=== PATIENT | female | born 1930 | race Caucasian/White ===

== ENCOUNTER → 2017-05-21 | Outpatient (CLI) | payer MEDICARE, BC ==
--- NOTE | 2017-05-21 14:32 | CT ---
EXAMINATION TYPE: CT cervical spine wo con DATE OF EXAM: 05/21/2017 COMPARISON: NONE HISTORY: neck pain, no known injury, c/o bilateral hand cramping CT DLP: 393.7 mGycm. Automated Exposure Control for Dose Reduction was Utilized. TECHNIQUE: CT scan of the cervical spine is obtained without contrast, axial images are obtained, sa gittal and coronal reformatted images are also reviewed. FINDINGS: Cervical spine is visualized in its entirety from C1 through upper thoracic levels, demonst rates scoliotic curvature without evidence of acute fracture or dislocation. There is grade 1 jenn listhesis of C4 on C5 and C5 on C6. Prevertebral soft tissue appears within normal limits. The C1-C2 articulation is within normal limits on the coronal images. Osseous structures are demineralized. Vertebral body heights are maintained. There is mild disc space narrowing C4-C5 level. There is moderate disc space narrowing C5-C6 level. There is moderate to adva nced disc space narrowing and spurring C6-C7 level. Posterior spur disc complex effaces anterior thec al sac at this level on sagittal and axial images. Review of axial images shows bilateral uncovertebral facet degenerative changes C4-C5 and C5-C6 level s. Marginal spurring contributes to bilateral neural foraminal narrowing C6-C7 level. There is mild t o moderate emphysematous change in visualized lung apices. There is mild to moderate calcified plaque in bilateral carotid bulbs. There is focal calcified pleural thickening or possible calcified dural based meningioma effacing posterior lateral spinal canal on axial image 24 measuring 8 x 3 mm. IMPRESSION: There is multilevel spondylolisthesis, demineralization, and multilevel degenerative mendez ges as detailed above. 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 This can BE correlated with contrast-enhanced cervical spine MRI if desired.
== END | disposition home or self-care (01) ==
LOC: RADCTMAIN 13:29
PROVIDERS: ATTEND Psychiatry & Neurology Neurology
DX: M47.812 Spondylosis without myelopathy or radiculopathy, cervical region (principal); M43.12 Spondylolisthesis, cervical region
CPT/HCPCS: 72125

== ENCOUNTER → 2017-06-24 | Outpatient (CLI) | payer MEDICARE, BC | LOC: RADCTMAIN 12:57 | PROVIDERS: ATTEND Psychiatry & Neurology Neurology | DX: Z53.9 Procedure and treatment not carried out, unspecified reason (principal) | CPT/HCPCS: 82565; 84520 ==

== ENCOUNTER 2017-12-04 09:43 | Observation (INO) | payer MEDICARE, BC ==
[2017-12-04] MEDS ORDERED: METOCLOPRAMIDE 5 MG/ML 2 ML VIAL IVP PRN (11:07)
[2017-12-04] MEDS ORDERED: ONDANSETRON 4 MG/2 ML VIAL IVP PRN (11:07)
[2017-12-04] MEDS ORDERED: diphenhydrAMINE 25 MG CAP PO PRN (11:07)
[2017-12-04] MEDS ORDERED: HYDROcodone/APAP 5-325MG 1 EACH TAB PO PRN ×3 (11:07→20:59)
[2017-12-04] MEDS ORDERED: SENNOSIDES-DOCUSATE SODIUM 1 EACH TAB PO PRN (11:07)
[2017-12-04] MEDS ORDERED: TEMAZEPAM 15 MG CAP PO PRN (11:07)
[2017-12-04] MEDS: LATANOPROST 0.005% OPHTH DROPS 2.5 ML BTL RIGHT EYE SCH (22:02)
[2017-12-04] MEDS: ATORVASTATIN 10 MG TAB PO SCH (22:03)
[2017-12-04] MEDS: MECLIZINE 25 MG TAB PO SCH (22:03)
[2017-12-04] MEDS: VIT A,C & E-LUTEIN-MINERALS 1 EACH TAB PO SCH (22:03)
[2017-12-05] MEDS: MECLIZINE 25 MG TAB PO SCH ×3 (07:42→20:50)
[2017-12-05] MEDS: VIT A,C & E-LUTEIN-MINERALS 1 EACH TAB PO SCH ×2 (07:42→15:29)
[2017-12-05] MEDS: MAGNESIUM OXIDE 400 MG TAB PO SCH (07:42)
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
[2017-12-05] MEDS: LATANOPROST 0.005% OPHTH DROPS 2.5 ML BTL RIGHT EYE SCH (20:50)
[2017-12-05] MEDS: ATORVASTATIN 10 MG TAB PO SCH (20:50)
[2017-12-06 00:16] VITALS: RESP 16
[2017-12-06] MEDS: MAGNESIUM OXIDE 400 MG TAB PO SCH (07:50)
[2017-12-06] MEDS: VIT A,C & E-LUTEIN-MINERALS 1 EACH TAB PO SCH (07:50)
[2017-12-06] MEDS: MECLIZINE 25 MG TAB PO SCH (07:50)
[2017-12-06 08:02] VITALS: BP 170/68; PULSE 79; TEMP 98.3
--- NOTE | 2017-12-06 11:34 | P.DS ---
Providers Date of admission: 12/04/17 14:46 Expected date of discharge: 12/06/17 Attending physician: Bipin Moore Consults: 12/04/17 20:51 Consult Physician Routine Consulting Provider: Blake Epperson Consult Reason/Comments: MEDICAL CONSULTATION Do you want consulting provider notified?: Already Contacted Primary care physician: Stated None - Discharge Diagnosis(es) (1) Right humeral fracture Patient was admitted on 12/04/2017 as a result of a displaced right humerus fracture and multiple falls. She requires pain management, PT, OT, moniroring and rehab. Her hospital course has remained without complication. On day of discharge she is afebrile, vital signs stable, labs within acceptable ranges, tolerating by mouth meds and diet, voiding without difficulty, positive flatus, denies abdominal pain or calf pain, pain is controlled on oral pain medication and has no new complaints. Neurovascular status is intact, calves are soft and nontender, abdomen soft and nontender. Review of systems is negative for numbness, tingling, fever, chills, chest pain, shortness breath, nausea, vomiting, dizziness, headaches, slurred speech or other. Current Visit: Yes Status: Acute Priority: Medium Patient Condition at Discharge: Fair Plan - Discharge Summary Discharge Rx Participant: No New Discharge Prescriptions: No Action Atorvastatin [Lipitor] 10 mg PO HS Travoprost [Travatan Z 0.004%] 1 drop RIGHT EYE HS Meclizine [Antivert] 25 mg PO TID Vit C/E/Zn/Coppr/Lutein/Zeaxan [Preservision Areds 2 Softgel] 1 cap PO BID Magnesium Chloride [Slow Mag] 64 mg PO DAILY HYDROcodone/APAP 5-325MG [[place] 5-325] 1 tab PO Q8H PRN PRN Reason: Pain rOPINIRole HCL [Requip] 0.5 mg PO HS Discharge Medication List Atorvastatin [Lipitor] 10 mg PO HS 11/14/15 [History] Travoprost [Travatan Z 0.004%] 1 drop RIGHT EYE HS 11/14/15 [History] HYDROcodone/APAP 5-325MG [[place] 5-325] 1 tab PO Q8H PRN 12/04/17 [History] Magnesium Chloride [Slow Mag] 64 mg PO DAILY 12/04/17 [History] Meclizine [Antivert] 25 mg PO TID 12/04/17 [History] Vit C/E/Zn/Coppr/Lutein/Zeaxan [Preservision Areds 2 Softgel] 1 cap PO BID 12/04 [History] rOPINIRole HCL [Requip] 0.5 mg PO HS 12/04/17 [History] Follow up Appointment(s)/Referral(s): Bipin Moore MD [Medical Doctor] - 12/20/17 9:00 am Activity/Diet/Wound Care/Special Instructions: take meds as directed f/u with Dr. Moore in office nonweightbearing RUE Discharge Disposition: TRANSFER TO SNF/ECF
== END 2017-12-06 15:05 ==
LOC: INTOOBSV 14:46 → 5MS5E 14:46
PROVIDERS: ADMIT Orthopaedic Surgery; ATTEND Orthopaedic Surgery
DX: S42.301D Unspecified fracture of shaft of humerus, right arm, subsequent encounter for fracture with routine healing (principal); R29.6 Repeated falls; E78.5 Hyperlipidemia, unspecified; Z87.440 Personal history of urinary (tract) infections; Z87.11 Personal history of peptic ulcer disease; N18.3 Chronic kidney disease, stage 3 (moderate); H40.9 Unspecified glaucoma; H35.30 Unspecified macular degeneration; M54.5 Low back pain; M75.02 Adhesive capsulitis of left shoulder; G89.29 Other chronic pain; D64.9 Anemia, unspecified; R42 Dizziness and giddiness; W19.XXXD Unspecified fall, subsequent encounter; Z90.49 Acquired absence of other specified parts of digestive tract; Z97.0 Presence of artificial eye; Z87.828 Personal history of other (healed) physical injury and trauma; Z87.891 Personal history of nicotine dependence; Z96.612 Presence of left artificial shoulder joint; Z79.899 Other long term (current) drug therapy; Z80.8 Family history of malignant neoplasm of other organs or systems; Z80.1 Family history of malignant neoplasm of trachea, bronchus and lung; Z82.5 Family history of asthma and other chronic lower respiratory diseases
CPT/HCPCS: 97116; 97162; 97530; 97535; 97166; G0378 ×4; G0379

== ENCOUNTER → 2018-01-24 | Outpatient (CLI) | payer MEDICARE, BC ==
--- NOTE | 2018-01-24 16:02 | XR ---
EXAMINATION TYPE: XR chest 2V DATE OF EXAM: 01/24/2018 COMPARISON: NONE TECHNIQUE: PA and lateral views submitted. HISTORY: Abnormal x-ray FINDINGS: The lungs are clear and there is no pneumothorax, pleural effusion, or focal pneumonia. Interstitiu m somewhat coarsened and postsurgical change involving the left shoulder. Postsurgical change involvi ng vertebral, and is atherosclerotic change aorta. Hyperinflation suggests COPD there is degenerative change of the spine. IMPRESSION: 1. No acute process.
== END | disposition home or self-care (01) ==
LOC: RADXRMAIN 15:13
PROVIDERS: ATTEND Family Medicine
DX: R91.8 Other nonspecific abnormal finding of lung field (principal)
CPT/HCPCS: 71046

== ENCOUNTER 2018-01-31 12:21 | Inpatient (IN) | payer MEDICARE, BC ==
[2018-01-29 10:55] VITALS: BMI 27.3
[~2018-01-31 12:21] MED LIST: MIDAZOLAM 2 MG/2 ML VIAL IV PRN; ONDANSETRON 4 MG/2 ML VIAL IVP ONE; ceFAZolin IN SWFI 2 GM/20 ML SYRINGE IVP ONE; fentaNYL (PF) 50 MCG/ML 2 ML AMP IV PRN
[2018-01-31] MEDS: LACTATED RINGERS 1,000 ML IV SCH ×2 (14:47→22:02)
[2018-01-31] MEDS ORDERED: LIDOCAINE 1% 20 ML VIAL (10MG/ML) FOR IV START INTRADERMA ONE (14:47)
[2018-01-31 15:56] LABS: Basophils % (A) 1 %; Eosinophils # (A) 0.4 k/uL (0-0.7); Eosinophils % (A) 7 %; HCT 34.8 % (34.0-46.0); HGB 11.2 gm/dL (11.4-16.0); Lymphocytes % (A) 32 %; MCH 32.8 pg (25.0-35.0); MCHC 32.2 g/dL (31.0-37.0); MCV 101.9 fL (80.0-100.0); Macrocytosis Slight; Mean Platelet Volume 8.4; Monocytes # (A) 0.4 k/uL (0-1.0); Monocytes % (A) 7 %; Neutrophils # (A) 3.2 k/uL (1.3-7.7); Neutrophils % (A) 52 %; Platelet Count 144 k/uL (150-450); RBC 3.42 m/uL (3.80-5.40); RDW 15.2 % (11.5-15.5); WBC 6.1 k/uL (3.8-10.6)
[2018-01-31 16:07] LABS: Calcium 9.3 mg/dL (8.4-10.2); Potassium 4.5 mmol/L (3.5-5.1)
[2018-01-31] MEDS ORDERED: ROCURONIUM BROMIDE 10 MG/ML 10 ML VIAL IV ONE (17:50)
[2018-01-31] MEDS ORDERED: HYDROmorphone (PF) 1 MG/ML ONE (17:50)
[2018-01-31] MEDS ORDERED: fentaNYL (PF) 50 MCG/ML 2 ML AMP ONE (17:50)
[2018-01-31] MEDS ORDERED: ePHEDrine SULFATE/0.9% NACL/PF 50 MG/5 ML SYRINGE IV ONE (17:50)
[2018-01-31] MEDS ORDERED: MIDAZOLAM 2 MG/2 ML VIAL ONE (17:50)
[2018-01-31] MEDS ORDERED: SUCCINYLCHOLINE CHLORIDE 100 MG/5 ML SYR IV ONE (17:50)
[2018-01-31] MEDS ORDERED: LIDOCAINE 1% INJ 10MG/ML (20 ML MDV) ONE (17:50)
[2018-01-31] MEDS ORDERED: PROPOFOL 10 MG/ML 20 ML VIAL IV ONE (17:50)
[2018-01-31] MEDS ORDERED: KETAMINE 10 MG/ML 20 ML VIAL ONE (17:50)
[2018-01-31] MEDS ORDERED: LACTATED RINGERS 1,000 ML IV ONE (20:11)
--- NOTE | 2018-01-31 20:35 | P.OP ---
Date of Procedure: 01/31/18 Preoperative Diagnosis: 1. 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 Osteoporosis 3. Noncompliance Postoperative Diagnosis: Same Procedure(s) Performed: Open reduction and internal fixation of right humerus fracture Anesthesia: NAVIN Surgeon: Bipin Moore [employer] #1: Hanny Celeste Pathology: none sent Condition: stable Disposition: PACU Indications for Procedure: The patient is a very pleasant 87-year-old female with a medical history significant for osteoporosis. The patient sustained a right humeral shaft fracture and was initially seen by an outside physician. The patient and her family followed up in my office. We initially attempted to treat the patient conservatively with a coaptation splint followed by a fracture brace. Initially the fracture was well aligned within the fracture brace that eventually the patient became noncompliant with her brace and had increasing deformity and pain in her arm. We continued to treat her nonoperatively with serial x-rays. The patient's pain and deformity increased and her x-rays showed significant angulation and distraction at the fracture site. We discussed continued observation due to the patient's age versus surgery. The patient and her family requested surgery. My recommendation was to perform an open reduction and internal fixation through a posterior approach and use a long locking plate. We discussed the potential risks and complications of surgery including but not limited to risk of anesthesia, superficial infection, deep infection, delayed wound healing, fracture nonunion, fracture malunion, loss of fixation of the hardware, hardware failure, re-displacement, and chronic pain, chronic swelling, generalized satisfaction with surgery, DVT, PE, and possibly loss of arm or life area and the patient and her family understand her increased risk of having a complication particularly delayed union, nonunion , hardware failure due to her osteoporosis and noncompliance. They provided their verbal and written consent to go forward with surgery. Description of Procedure: The patient was identified in preoperative holding and the correct right arm was marked with my initials. I reviewed the consent form and her preoperative images. The patient was then brought back to the operating room by anesthesia. She was positioned supine on the OR table and a general anesthetic and preoperative antibiotics were administered. Once the patient was under anesthesia she was positioned in the lateral decubitus position with the left side down and the right side up. An axillary roll was placed. The down left arm was brought to the side of the table and secured with foam and tape. An arm augustin was used under the arm to position the right arm. Foam was placed under the down left leg to protect the bony prominences and common peroneal nerve. A pillow was placed between the legs. Once the patient was adequately positioned in the lateral decubitus position the OR table was positioned 90 from the anesthesia machine to facilitate imaging. The right arm was then prepped and draped in the standard sterile fashion. Prior to starting surgery timeout was performed identifying the correct patient, operative extremity, and procedure. I began by outlining the bony landmarks over the posterior aspect of the arm including the acromion proximally and the tip of the olecranon distally. A straight posterior incision centered over the humeral shaft was marked out with a skin marker. Skin incision was made with a scalpel and dissection was carried down carefully to the subcutaneous tissue with electrocautery taking care to control any bleeding vessels. The fascia over the triceps muscle was incised longitudinally in line with the skin incision. Proximally the interval between the long and lateral head of the triceps was bluntly developed. I carefully dissected down the shaft of the humerus until the radial nerve and deep artery were identified. They were carefully exposed and retracted using small vessel loops. Once the neurovascular bundle had been identified and carefully retracted the humerus was exposed proximally. The fracture site was identified and there was abundant callus. There was gross motion at the fracture site and an obvious nonunion. Distally the medial head of the triceps was bluntly exposed and elevated off the posterior cortex of the humerus. I carefully debrided the early consolidating callus down to the fracture ends. Due to the subacute presentation I was unable to get a cortical read. Using a 2.0 mm drill bit a unicortical hole was placed along the lateral aspect of the humeral shaft proximal and distal to the fracture. Findings of a pointed reduction clamp were placed in these holes and used a generate compression across the fracture site and to reduce the fracture. The same procedure was repeated medially using a 2.0 mm drill bit to create holes and a large point-to- point reduction clamp to generate compression. I then placed a 10 hole 4.5 mm locking plate over the posterior shaft of the femur taking care to slide the plate underneath the neurovascular bundle. Once the plate was in appropriate position nonlocking 4.5 mm screws were placed proximal and distal to the plate hoping to bring the plate down to bone. Proximally the bone quality was very poor and the screw did not adequately bring the plate down to bone so a large plate to bone reduction clamp was used gently bringing the plate down to bone. I then proceeded to fill the locking screws proximally and distally with 4.5 mm locking screws. All of the holes of the plate were filled with locking screws, acknowledging that standard AO technique generally doesn't dictate filling all holes of the plate, but due to her poor bone quality I elected to fill all of the holes. On inspection the fracture site was adequately compressed and the construct appeared stable. Final fluoroscopic images were taken. The neurovascular bundle was identified and seen to be intact. The wound was copiously irrigated with sterile saline. The triceps tendon distally was closed with a running 0 Vicryl. The fascia over the triceps muscle was closed with a running 0 Vicryl. The deep subcutaneous layer was reapproximated using 2 -0 Vicryl. The skin was closed with a running subcuticular stitch and Dermabond. A sterile dressing was applied. Due to the patient's poor bone quality and noncompliance a posterior plaster splint was placed to help facilitate healing of the incision and to protect our surgical repair. I verified that all instrument, sponge, and sharp counts were correct. A sterile dressing was applied followed by the previously mentioned posterior splint. The patient was then awoken from her anesthetic, transferred to a gurney, and brought to PACU having pouted the procedure well. Hanny Celeste PA-C was required is a skilled distribution center assistant for patient positioning, surgical exposure, reduction of the fracture, placement of hardware, closure of wound, and application of splint. Ryan: The patient is going to be admitted for pain control, antibiotics, and assessment for rehab placement. She is to keep her arm in a sling at all times. She is to have a 5 pound weight restriction. She'll follow up in the office in 2 weeks for splint removal and x-rays of the humerus.
[2018-01-31] MEDS ORDERED: HYDROcodone/APAP 5-325MG 1 EACH TAB PO PRN (21:05)
[2018-01-31] MEDS ORDERED: diphenhydrAMINE 25 MG CAP PO PRN (21:05)
[2018-01-31] MEDS ORDERED: HYDROmorphone 0.5 MG/0.5 ML SYRINGE IVP PRN ×3 (21:05)
[2018-01-31] MEDS ORDERED: TEMAZEPAM 15 MG CAP PO PRN (21:05)
[2018-01-31] MEDS ORDERED: ONDANSETRON 4 MG/2 ML VIAL IVP PRN (21:05)
[2018-01-31] MEDS ORDERED: SENNOSIDES-DOCUSATE SODIUM 1 EACH TAB PO PRN (21:05)
[2018-01-31] MEDS: ceFAZolin IN SWFI 2 GM/20 ML SYRINGE IVP SCH (23:33)
[2018-01-31] MEDS: HYDROcodone/APAP 5-325MG 1 EACH TAB PO PRN (23:47)
[2018-02-01] MEDS: HYDROcodone/APAP 5-325MG 1 EACH TAB PO PRN (05:23)
[2018-02-01] MEDS: LACTATED RINGERS 1,000 ML IV SCH ×3 (05:25→14:04)
[2018-02-01 07:19] LABS: Basophils % (A) 0 %; Eosinophils # (A) 0.1 k/uL (0-0.7); Eosinophils % (A) 1 %; HCT 26.4 % (34.0-46.0); Lymphocytes # (A) 1.2 k/uL (1.0-4.8); Lymphocytes % (A) 13 %; MCH 33.3 pg (25.0-35.0); MCHC 32.5 g/dL (31.0-37.0); MCV 102.4 fL (80.0-100.0); Macrocytosis Slight; Mean Platelet Volume 8.6; Monocytes # (A) 0.5 k/uL (0-1.0); Monocytes % (A) 5 %; Neutrophils # (A) 7.3 k/uL (1.3-7.7); Neutrophils % (A) 80 %; Platelet Count 115 k/uL (150-450); RBC 2.58 m/uL (3.80-5.40); RDW 15.8 % (11.5-15.5); WBC 9.1 k/uL (3.8-10.6)
[2018-02-01 07:23] LABS: HGB 8.6 gm/dL (11.4-16.0)
[2018-02-01] MEDS: ceFAZolin IN SWFI 2 GM/20 ML SYRINGE IVP SCH (08:49)
[2018-02-01] MEDS: ENOXAPARIN 30 MG/0.3 ML SYRINGE SQ SCH (10:36)
--- NOTE | 2018-02-01 10:52 | P.PN ---
Subjective Progress Note Date: 02/01/18 Principal diagnosis: Nonunion right humerus fracture. This is an 87-year-old female who is status post open reduction internal fixation of nonunion midshaft humerus fracture right arm. She is stable from an orthopedic standpoint this morning. She was just seen by physical therapy who is recommending possible rehab placement. She does have some instability with ambulation. She has no new complaints or concerns today. Objective - Vital Signs Vital signs: Vital Signs Temp 97.9 F 02/01/18 08:47 Pulse 87 02/01/18 08:47 Resp 14 02/01/18 08:47 BP 111/69 02/01/18 08:47 Pulse Ox 99 02/01/18 08:47 Intake & Output 01/31/18 02/01/18 02/01/18 18:59 06:59 18:59 Intake Total 1000 1100 Output Total 700 Balance 1000 400 Weight 63.503 kg Intake: IV 1000 300 Intake, IV Titration 800 Amount Lactated Ringers 1,000 ml 800 @ 100 mls/hr IV .Q10H [facility] Rx#:[id number] Output: Urine 600 Estimated Blood Loss 100 Other: Voiding Method Indwelling Catheter Indwelling Catheter - Exam This is an 87-year-old female in no acute distress. She is alert and oriented 3. Exam of the upper extremities reveals that her splint is intact. Sling is in place. She has full finger motion. She has some difficulty with thumb extension which is unchanged from preoperative findings. She has normal sensation to the fingers. Capillary refills less than 3 seconds. - Labs CBC & Chem 7: 02/01/18 06:40 01/31/18 14:45 Labs: Abnormal Lab Results - Last 24 Hours (Table) 01/31/18 01/31/18 02/01/18 Range/Units 14:45 14:47 06:40 RBC 3.42 L 2.58 L (3.80-5.40) m/uL Hgb 11.2 L 8.6 L D (11.4-16.0) gm/dL Hct 26.4 L (34.0-46.0) % MCV 101.9 H 102.4 H (80.0-100.0) fL RDW 15.8 H (11.5-15.5) % Plt Count 144 L 115 L (150-450) k/uL BUN 38 H (7-17) mg/dL Creatinine 1.23 H (0.52-1.04) mg/dL Glucose 101 H (74-99) mg/dL Assessment and Plan (1) Fracture of right humerus with nonunion Current Visit: Yes Status: Acute Code(s): S42.301K - UNSP FX SHAFT OF HUMERUS, RIGHT ARM, SUBS FOR FX W NONUNION SNOMED Code(s): 01319714 (2) Right humeral fracture Current Visit: No Status: Acute Priority: Medium Code(s): S42.301A - UNSP FRACTURE OF SHAFT OF HUMERUS, RIGHT ARM, INIT SNOMED Code(s): 30983013 (3) Status post open reduction with internal fixation of fracture Current Visit: Yes Status: Acute Code(s): Z96.7 - PRESENCE OF OTHER BONE AND TENDON IMPLANTS; Z87.81 - PERSONAL HISTORY OF (HEALED) TRAUMATIC FRACTURE SNOMED Code(s): 466276598 Plan: The clinical findings are discussed the patient. We will keep her here today and work with physical therapy. PT is recommending a quad cane for more stability with ambulation. We will reassess tomorrow. Patient is considering inpatient rehab.
--- NOTE | 2018-02-02 07:52 | XR ---
EXAMINATION TYPE: XR humerus RT DATE OF EXAM: 01/31/2018 COMPARISON: NONE HISTORY: Intraoperative TECHNIQUE: 2 views submitted. FINDINGS: Images are limited by overlying instrumentation. Postsurgical changes IMPRESSION: 1. Intraoperative image
[2018-02-02] MEDS: ENOXAPARIN 30 MG/0.3 ML SYRINGE SQ SCH (08:21)
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
--- NOTE | 2018-02-02 10:12 | P.PN ---
Subjective Progress Note Date: 02/02/18 Principal diagnosis: Nonunion right humerus fracture. This is an 87-year-old female who is status post open reduction internal fixation of nonunion midshaft humerus fracture right arm. She is stable from an orthopedic standpoint this morning. She was just seen by physical therapy who is recommending possible rehab placement. Hgb was 8.6 yesterday. Repeat labs are pending. Objective - Vital Signs Vital signs: Vital Signs Temp 99.4 F 02/02/18 08:19 Pulse 96 02/02/18 08:19 Resp 16 02/02/18 08:19 BP 106/49 02/02/18 08:19 Pulse Ox 96 02/02/18 08:19 Intake & Output 02/01/18 02/02/18 02/02/18 18:59 06:59 18:59 Intake Total 700 400 Output Total 400 100 Balance 300 300 Intake: Intake, IV Titration 700 Amount Lactated Ringers 1,000 ml 700 @ 100 mls/hr IV .Q10H [facility] Rx#:[id number] Oral 400 Output: Urine 400 100 Uretheral (Null) 200 Other: Voiding Method Indwelling Catheter Bedside Commode - Exam This is an 87-year-old female in no acute distress. She is alert and oriented 3. Exam of the upper extremities reveals that her splint is intact. Sling is in place. She has full finger motion. She has some difficulty with thumb extension which is unchanged from preoperative findings. She has normal sensation to the fingers. Capillary refills less than 3 seconds. - Labs CBC & Chem 7: 02/01/18 06:40 01/31/18 14:45 Assessment and Plan (1) Fracture of right humerus with nonunion Current Visit: Yes Status: Acute Code(s): S42.301K - UNSP FX SHAFT OF HUMERUS, RIGHT ARM, SUBS FOR FX W NONUNION SNOMED Code(s): 87575252 (2) Right humeral fracture Current Visit: No Status: Acute Priority: Medium Code(s): S42.301A - UNSP FRACTURE OF SHAFT OF HUMERUS, RIGHT ARM, INIT SNOMED Code(s): 63485904 (3) Status post open reduction with internal fixation of fracture Current Visit: Yes Status: Acute Code(s): Z96.7 - PRESENCE OF OTHER BONE AND TENDON IMPLANTS; Z87.81 - PERSONAL HISTORY OF (HEALED) TRAUMATIC FRACTURE SNOMED Code(s): 027408807 Plan: The clinical findings are discussed the patient. We will keep her here today and work with physical therapy. PT is recommending a quad cane for more stability with ambulation. Await repeat labs today. Possible discharge to home tomorrow.
[2018-02-02 11:34] LABS: Basophils % (A) 0 %; Eosinophils # (A) 0.1 k/uL (0-0.7); Eosinophils % (A) 2 %; HCT 26.1 % (34.0-46.0); HGB 8.3 gm/dL (11.4-16.0); Lymphocytes # (A) 1.2 k/uL (1.0-4.8); Lymphocytes % (A) 16 %; MCH 33.6 pg (25.0-35.0); MCHC 31.8 g/dL (31.0-37.0); MCV 105.5 fL (80.0-100.0); Macrocytosis Moderate; Mean Platelet Volume 7.3; Monocytes # (A) 0.4 k/uL (0-1.0); Monocytes % (A) 6 %; Neutrophils # (A) 5.4 k/uL (1.3-7.7); Neutrophils % (A) 75 %; Platelet Count 125 k/uL (150-450); RBC 2.47 m/uL (3.80-5.40); RDW 15.7 % (11.5-15.5); WBC 7.3 k/uL (3.8-10.6)
[2018-02-02 11:44] LABS: Calcium 8.7 mg/dL (8.4-10.2); Potassium 5.2 mmol/L (3.5-5.1)
[2018-02-02] MEDS: LACTATED RINGERS 1,000 ML IV SCH ×2 (12:23→13:00)
--- NOTE | 2018-02-02 17:38 | FL ---
Fluoroscopy INDICATION: Pain FINDINGS: Fluoroscopy time: 8 seconds. Images obtained: 3. Images document humeral fracture repair. IMPRESSIONS: 1. Documentation of fluoroscopy.
[2018-02-02] MEDS: HYDROcodone/APAP 5-325MG 1 EACH TAB PO PRN (17:42)
[2018-02-03 07:22] VITALS: BP 140/79; PULSE 82; RESP 18; TEMP 99.4
[2018-02-03 07:32] LABS: Basophils % (A) 1 %; Eosinophils # (A) 0.3 k/uL (0-0.7); Eosinophils % (A) 5 %; HCT 24.8 % (34.0-46.0); HGB 7.8 gm/dL (11.4-16.0); Lymphocytes # (A) 1.5 k/uL (1.0-4.8); Lymphocytes % (A) 26 %; MCH 33.1 pg (25.0-35.0); MCHC 31.5 g/dL (31.0-37.0); MCV 105.2 fL (80.0-100.0); Macrocytosis Moderate; Mean Platelet Volume 7.5; Monocytes # (A) 0.3 k/uL (0-1.0); Monocytes % (A) 5 %; Neutrophils # (A) 3.5 k/uL (1.3-7.7); Neutrophils % (A) 62 %; Platelet Count 111 k/uL (150-450); RBC 2.35 m/uL (3.80-5.40); RDW 15.9 % (11.5-15.5); WBC 5.7 k/uL (3.8-10.6)
[2018-02-03] MEDS: ENOXAPARIN 30 MG/0.3 ML SYRINGE SQ SCH (07:34)
[2018-02-03] MEDS: HYDROcodone/APAP 5-325MG 1 EACH TAB PO PRN ×2 (07:34→13:35)
[2018-02-03 07:44] LABS: Calcium 8.6 mg/dL (8.4-10.2); Potassium 4.9 mmol/L (3.5-5.1)
== END 2018-02-03 14:09 | disposition home or self-care (01) | DRG 494 ==
LOC: OR 12:21 → 3SUR 20:57 → OR 02-01 17:56
PROVIDERS: ADMIT Orthopaedic Surgery; ATTEND Orthopaedic Surgery
PROC: 0PSF04Z Reposition Right Humeral Shaft with Internal Fixation Device, Open Approach (ICD-10-PCS; principal; 2018-01-31 14:15)
DX: S42.301A Unspecified fracture of shaft of humerus, right arm, initial encounter for closed fracture (principal); D53.9 Nutritional anemia, unspecified; D63.1 Anemia in chronic kidney disease; E78.5 Hyperlipidemia, unspecified; H35.30 Unspecified macular degeneration; H40.9 Unspecified glaucoma; M81.0 Age-related osteoporosis without current pathological fracture; N18.9 Chronic kidney disease, unspecified; Z79.899 Other long term (current) drug therapy; Z80.8 Family history of malignant neoplasm of other organs or systems; Z82.5 Family history of asthma and other chronic lower respiratory diseases; Z87.440 Personal history of urinary (tract) infections; Z87.891 Personal history of nicotine dependence; Z90.710 Acquired absence of both cervix and uterus; Z91.19 Patient's noncompliance with other medical treatment and regimen; Z90.01 Acquired absence of eye
CPT/HCPCS: 80048; 82306; 85025

== ENCOUNTER → 2018-02-17 | Outpatient (CLI) | payer MEDICARE, BC ==
[2018-02-17 14:21] LABS: Basophils % (A) 1 %; Eosinophils # (A) 0.3 k/uL (0-0.7); Eosinophils % (A) 5 %; HCT 31.1 % (34.0-46.0); Hypochromasia Moderate; Lymphocytes # (A) 1.6 k/uL (1.0-4.8); Lymphocytes % (A) 31 %; MCH 32.6 pg (25.0-35.0); MCHC 30.8 g/dL (31.0-37.0); MCV 105.7 fL (80.0-100.0); Macrocytosis Moderate; Mean Platelet Volume 7.4; Monocytes # (A) 0.3 k/uL (0-1.0); Monocytes % (A) 5 %; Neutrophils # (A) 2.8 k/uL (1.3-7.7); Neutrophils % (A) 56 %; RBC 2.95 m/uL (3.80-5.40); RDW 15.9 % (11.5-15.5); WBC 5.1 k/uL (3.8-10.6)
[2018-02-17 14:26] LABS: HGB 9.6 gm/dL (11.4-16.0); Platelet Count 189 k/uL (150-450)
[2018-02-17 14:35] LABS: Calcium 9.3 mg/dL (8.4-10.2); Magnesium 2.1 mg/dL (1.6-2.3); Potassium 5.1 mmol/L (3.5-5.1); Uric Acid 6.3 mg/dL (3.7-7.4)
[2018-02-17 18:35] LABS: Iron Saturation 19.01 (12.00-45.00)
[2018-02-17 18:46] LABS: Vitamin D 25 Hydroxy 37.8 ng/mL (30.0-100.0)
[2018-02-17 20:03] LABS: Parathyroid Hormone Intact 62.1 pg/mL (14.0-72.0)
== END | disposition home or self-care (01) ==
LOC: LABWHC1 12:59
PROVIDERS: ATTEND Internal Medicine Nephrology
DX: N18.3 Chronic kidney disease, stage 3 (moderate) (principal); D63.1 Anemia in chronic kidney disease; E55.9 Vitamin D deficiency, unspecified; E21.3 Hyperparathyroidism, unspecified; M10.9 Gout, unspecified; N39.0 Urinary tract infection, site not specified
CPT/HCPCS: 36415; 80048; 82306; 82728; 83540; 83550; 83735; 83970; 84100; 84550; 85025

== ENCOUNTER → 2018-03-03 | Outpatient (CLI) | payer OTHER, MEDICARE, BC ==
[2018-03-03 14:38] LABS: Basophils % (A) 1 %; Eosinophils # (A) 0.2 k/uL (0-0.7); Eosinophils % (A) 5 %; HCT 32.1 % (34.0-46.0); HGB 9.8 gm/dL (11.4-16.0); Hypochromasia Slight; Lymphocytes # (A) 1.3 k/uL (1.0-4.8); Lymphocytes % (A) 30 %; MCH 32.5 pg (25.0-35.0); MCHC 30.7 g/dL (31.0-37.0); MCV 105.9 fL (80.0-100.0); Macrocytosis Moderate; Mean Platelet Volume 8.8; Monocytes # (A) 0.3 k/uL (0-1.0); Monocytes % (A) 6 %; Neutrophils # (A) 2.4 k/uL (1.3-7.7); Neutrophils % (A) 56 %; Platelet Count 115 k/uL (150-450); RBC 3.03 m/uL (3.80-5.40); RDW 15.4 % (11.5-15.5); WBC 4.2 k/uL (3.8-10.6)
[2018-03-03 14:59] LABS: Albumin 3.8 g/dL (3.5-5.0); Calcium 9.1 mg/dL (8.4-10.2); Potassium 5.5 mmol/L (3.5-5.1); Total Bilirubin 0.3 mg/dL (0.2-1.3); Total Protein 6.9 g/dL (6.3-8.2)
== END | disposition home or self-care (01) ==
LOC: LABWHC1 13:53
PROVIDERS: ATTEND Family Medicine
DX: N18.3 Chronic kidney disease, stage 3 (moderate) (principal); D63.1 Anemia in chronic kidney disease
CPT/HCPCS: 36415; 80053; 85025

== ENCOUNTER → 2018-04-29 | Outpatient (CLI) | payer MEDICARE, BC ==
[2018-04-29 15:19] LABS: Basophils % (A) 1 %; Eosinophils # (A) 0.1 k/uL (0-0.7); Eosinophils % (A) 3 %; HCT 35.3 % (34.0-46.0); Hypochromasia Slight; Lymphocytes % (A) 23 %; MCH 32.5 pg (25.0-35.0); MCHC 31.3 g/dL (31.0-37.0); Macrocytosis Slight; Mean Platelet Volume 7.4; Monocytes # (A) 0.3 k/uL (0-1.0); Monocytes % (A) 7 %; Neutrophils # (A) 2.7 k/uL (1.3-7.7); Neutrophils % (A) 63 %; Platelet Count 120 k/uL (150-450); RBC 3.39 m/uL (3.80-5.40); WBC 4.3 k/uL (3.8-10.6)
[2018-04-29 15:30] LABS: Albumin 3.9 g/dL (3.5-5.0); Calcium 9.1 mg/dL (8.4-10.2); Potassium 5.4 mmol/L (3.5-5.1); Total Bilirubin 0.5 mg/dL (0.2-1.3); Total Protein 7.3 g/dL (6.3-8.2)
== END | disposition home or self-care (01) ==
LOC: LABWHC1 14:40
PROVIDERS: ATTEND Family Medicine
DX: N18.3 Chronic kidney disease, stage 3 (moderate) (principal); D63.1 Anemia in chronic kidney disease
CPT/HCPCS: 36415; 80053; 85025

== ENCOUNTER → 2018-06-17 | Outpatient (CLI) | payer MEDICARE, BC ==
--- NOTE | 2018-06-17 13:34 | US ---
EXAMINATION TYPE: US kidneys/renal and bladder DATE OF EXAM: 06/17/2018 COMPARISON: 07/11/2012 CLINICAL HISTORY: N18.3 Chronic kidney disease stage 3. EXAM MEASUREMENTS: Right Kidney: 8.5 x 3.9 x 3.8 cm Left Kidney: 8.2 x 4.0 x 3.4 cm Right Kidney: No hydronephrosis. Measuring small, hypoechoic lesion visualized in the mid pole measur ing 0.6 x 0.6 x 0.6 cm Left Kidney: No hydronephrosis. Measuring small. Hypoechoic lesion visualized lower pole measuring 0. 9 x 0.8 x 0.9 cm Bladder: Not distended, patient did not want to stay to drink water Bilateral Jets seen: No, see above. There is no evidence for hydronephrosis at this point in time. No nephrolithiasis is seen. IMPRESSION: 1. No hydronephrosis or nephrolithiasis. Cortical medullary differentiation is maintained and there i s only mild cortical renal atrophy on the left. 2. Bilateral subcentimeter renal lesions that are suspected to represent small cysts however do not d emonstrate clear increased through transmission and could be further assessed with CT abdomen.
== END | disposition home or self-care (01) ==
LOC: RADUSWWP 11:04
PROVIDERS: ATTEND Internal Medicine Nephrology
DX: N28.9 Disorder of kidney and ureter, unspecified (principal); N26.1 Atrophy of kidney (terminal); N18.3 Chronic kidney disease, stage 3 (moderate)
CPT/HCPCS: 76770

== ENCOUNTER → 2018-08-06 | Outpatient (CLI) | payer MEDICARE, BC ==
[2018-08-06 12:45] LABS: Basophils % (A) 1 %; Eosinophils # (A) 0.2 k/uL (0-0.7); Eosinophils % (A) 5 %; HCT 33.2 % (34.0-46.0); HGB 10.4 gm/dL (11.4-16.0); Hypochromasia Slight; Lymphocytes # (A) 0.9 k/uL (1.0-4.8); Lymphocytes % (A) 28 %; MCH 33.1 pg (25.0-35.0); MCHC 31.3 g/dL (31.0-37.0); MCV 105.8 fL (80.0-100.0); Macrocytosis Moderate; Mean Platelet Volume 7.5; Monocytes # (A) 0.2 k/uL (0-1.0); Monocytes % (A) 6 %; Neutrophils # (A) 1.9 k/uL (1.3-7.7); Neutrophils % (A) 57 %; Platelet Count 148 k/uL (150-450); RBC 3.14 m/uL (3.80-5.40); RDW 14.3 % (11.5-15.5); WBC 3.3 k/uL (3.8-10.6)
[2018-08-06 13:09] LABS: Appearance,Urine Cloudy (Clear); Bacteria,Urine Occasional /hpf; Bilirubin,Urine Negative (Negative); Blood,Urine Negative (Negative); Color,Urine Yellow; Glucose,Urine (UA) Negative (Negative); Ketones,Urine Negative (Negative); Leukocyte Esterase,Urine Large (Negative); Mucus,Urine Rare /hpf; Nitrite,Urine Negative (Negative); PH, Urine 5.5 (5.0-8.0); Protein,Urine Trace (Negative); RBC,Urine 2 /hpf (0-5); Specific Gravity,Urine 1.016 (1.001-1.035); Squamous Epithelial Cell,Urine <1 /hpf (0-4); Urobilinogen,Urine <2.0 mg/dL (<2.0)
[2018-08-06 19:37] LABS: Iron Saturation 25.95 (12.00-45.00)
[2018-08-06 19:39] LABS: Albumin 3.9 g/dL (3.80-4.90); Albumin/Globulin Ratio 1.63 (1.20-2.10); Anion Gap 7.9 mmol/L (4.00-12.00); Carbon Dioxide 24.1 mmol/L (21.6-31.8); Globulin 2.4 g/dL (2.1-3.7); Phosphorus 3.8 mg/dL (2.4-5.1); Potassium 5.2 mmol/L (3.5-5.5); Total Bilirubin 0.6 mg/dL (0.3-1.2); Total Protein 6.3 g/dL (6.2-8.2); Uric Acid 6.5 mg/dL (2.9-7.7)
[2018-08-06 19:45] LABS: Vitamin D 25 Hydroxy 34.2 ng/mL (30.0-100.0)
[2018-08-06 20:51] LABS: Parathyroid Hormone Intact 82.3 pg/mL (14.0-72.0)
== END ==
LOC: LABWHC1 11:33
PROVIDERS: ATTEND Nurse Practitioner Family
DX: Z00.00 Encounter for general adult medical examination without abnormal findings (principal); I87.2 Venous insufficiency (chronic) (peripheral); E78.00 Pure hypercholesterolemia, unspecified; D63.1 Anemia in chronic kidney disease; N18.3 Chronic kidney disease, stage 3 (moderate); R01.1 Cardiac murmur, unspecified; R42 Dizziness and giddiness; E55.9 Vitamin D deficiency, unspecified; N39.0 Urinary tract infection, site not specified; N25.81 Secondary hyperparathyroidism of renal origin; M10.9 Gout, unspecified
CPT/HCPCS: 36415; 80053; 80061; 81001; 82306; 82728; 83540; 83550; 83735; 83970; 84100; 84439; 84443; 84550; 85025; 87086

== ENCOUNTER → 2018-09-05 | Outpatient (CLI) | payer MEDICARE, BC ==
--- NOTE | 2018-09-06 14:37 | ECHOF ---
Referral Reason:R01.1 Cardiac Murmur MEASUREMENTS -------- HEIGHT: 152.4 cm WEIGHT: 63.5 kg BP: IVSd: 1.1 cm (0.6 - 1.1) LVIDd: 3.3 cm (3.9 - 5.3) LVPWd: 0.9 cm (0.6 - 1.1) IVSs: 1.0 cm LVIDs: 2.5 cm LVPWs: 1.4 cm LA Diam: 3.3 cm (2.7 - 3.8) Ao Diam: 3.3 cm (2.0 - 3.7) AV Cusp: 1.3 cm (1.5 - 2.6) LA Diam: 4.1 cm (2.7 - 3.8) MV EXCURSION: 23.254 mm (> 18.000) MV EF SLOPE: 114 mm/s (70 - 150) EPSS: 1.7 cm MV E Joshua: 0.70 m/s MV DecT: 282 ms MV A Joshua: 0.97 m/s MV E/A Ratio: 0.72 AR PHT: 424 ms RAP: 5.00 mmHg RVSP: 29.32 mmHg FINDINGS -------- Sinus rhythm. This was a technically adequate study. LV size, wall thickness and systolic function are normal, with an EF greater than 55%. The left gareth tricular size is normal. The right ventricle is normal in size. The left atrial size is normal. The right atrial size is normal. There is mild aortic valve sclerosis. There is mild aortic regurgitation. Mild mitral annular calcification present. Mild mitral regurgitation is present. Mild tricuspid regurgitation present. There is no evidence of pulmonary hypertension. The right v entricular systolic pressure, as measured by Doppler, is 29.32mmHg. There is no pulmonic regurgitation present. The aortic root size is normal. There is no pericardial effusion. CONCLUSIONS -------- 1. LV size, wall thickness and systolic function are normal, with an EF greater than 55%. 2. The left ventricular size is normal. 3. The right ventricle is normal in size. 4. The left atrial size is normal. 5. The right atrial size is normal. 6. There is mild aortic valve sclerosis. 7. There is mild aortic regurgitation. 8. Mild mitral annular calcification present. 9. Mild mitral regurgitation is present. 10. Mild tricuspid regurgitation present. 11. There is no evidence of pulmonary hypertension. 12. The right ventricular systolic pressure, as measured by Doppler, is 29.32mmHg. 13. There is no pulmonic regurgitation present. 14. The aortic root size is normal. 15. There is no pericardial effusion. [employer]: [employer]
== END ==
LOC: RADECHMAIN 15:09
PROVIDERS: ATTEND Family Medicine
DX: I08.3 Combined rheumatic disorders of mitral, aortic and tricuspid valves (principal)
CPT/HCPCS: 93306

== ENCOUNTER → 2018-09-05 | Outpatient (CLI) | payer MEDICARE, BC ==
--- NOTE | 2018-09-05 16:19 | US ---
EXAMINATION TYPE: US carotid duplex BILAT DATE OF EXAM: 09/05/2018 COMPARISON: NONE CLINICAL HISTORY: R42 DIZZINESS SYNCOPE R55. Vertigo EXAM MEASUREMENTS: RIGHT: Peak Systolic Velocity (PSV) cm/sec ----- Right CCA: 61.6 ----- Right ICA: 186.5 ----- Right ECA: 61.2 ICA/CCA ratio: 3.0 RIGHT: End Diastole cm/sec ----- Right CCA: 11.0 ----- Right ICA: 38.6 ----- Right ECA: 7.3 LEFT: Peak Systolic Velocity (PSV) cm/sec ----- Left CCA: 66.0 ----- Left ICA: 97.6 ----- Left ECA: 48.2 ICA/CCA ratio: 1.5 LEFT: End Diastole cm/sec ----- Left CCA: 12.7 ----- Left ICA: 26.0 ----- Left ECA: 3.3 VERTEBRALS (direction of flow): Right Vertebral: Antegrade Left Vertebral: Antegrade Rhythm: Normal Moderate plaque right bifurcation. Mild plaque left bifurcation. Increased velocities right ICA IMPRESSION: 1. 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 2. No significant flow-limiting stenosis left internal carotid artery. Criteria for Assigning % of Stenosis / Diameter reduction (Estimation based on the indirect measurements of the internal carotid artery velocities (ICA PSV). 1. Normal (no stenosis)=ICA PSV < 125 cm/s: ratio < 2.0: ICA EDV<40 cm/s. 2. Less than 50% stenosis=ICA PSV < 125 cm/s: ratio < 2.0: ICA EDV<40 cm/s. 3. 50 to 69% stenosis=ICA PSV of 125 to 230 cm/s: ration 2.0 ? 4.0: ICA EDV 40-100 cm/s. 4. Greater than 70% stenosis to near occlusion= ICA PSV > 230 cm/s: ratio > 4.0: ICA EDV > 100 cm/s. 5. Near occlusion= ICA PSV velocities may be low or undetectable: variable ratio and ICA EDV. 6. Total occlusion=unable to detect flow.
== END | disposition home or self-care (01) ==
LOC: RADUSMAIN 15:06
PROVIDERS: ATTEND Psychiatry & Neurology Neurology
DX: I65.21 Occlusion and stenosis of right carotid artery (principal)
CPT/HCPCS: 93880

== ENCOUNTER 2018-11-03 08:16 | Day surgery (SDC) | payer MEDICARE, BC ==
[2018-10-29 14:20] VITALS: BMI 27.3
[~2018-11-03 08:16] MED LIST changes: -MIDAZOLAM 2 MG/2 ML VIAL IV PRN; -ONDANSETRON 4 MG/2 ML VIAL IVP ONE; +SODIUM CHLORIDE 0.9% 1,000 ML IV SCH; -ceFAZolin IN SWFI 2 GM/20 ML SYRINGE IVP ONE; -fentaNYL (PF) 50 MCG/ML 2 ML AMP IV PRN
[2018-11-03 08:42] VITALS: PULSE 66; RESP 18; TEMP 97.9
[2018-11-03 11:39] VITALS: BP 155/89
--- NOTE | 2018-11-03 16:10 | P.PCN ---
Preoperative Diagnosis: Diagnosis Recurrent dizzy spells Twelve-lead ECG shows sinus rhythm normal GA narrow QRS normal ST segments normal QT interval Tilt table test for protocol Baseline blood pressure 177/79 mmHg Baseline heart is 69 beats a minute Patient was tilted upright at an angle of 70 per protocol. Her blood pressure remained elevated through the study based upon the arm cuffs However with continuous noninvasive blood pressure monitoring via , Blood pressure was within normal range There was no evidence for neurocardiogenic syncope No evidence for postural tachycardia syndrome or dysautonomia Impression Normal twelve-lead ECG No evidence for neurocardiogenic syncopal Suggest Watch for hypertension Anesthesia: none
== END 2018-11-03 11:33 | disposition home or self-care (01) ==
LOC: CATHEP 08:16
PROVIDERS: ATTEND Internal Medicine Clinical Cardiac Electrophysiology
DX: R42 Dizziness and giddiness (principal)
CPT/HCPCS: 93660

== ENCOUNTER → 2019-03-30 | Outpatient (CLI) | payer MEDICARE, BC ==
[2019-03-30 17:24] LABS: Amorphous Sediment,Urine Occasional /hpf; Appearance,Urine Cloudy (Clear); Bacteria,Urine Moderate /hpf; Bilirubin,Urine Negative (Negative); Blood,Urine Negative (Negative); Color,Urine Yellow; Glucose,Urine (UA) Negative (Negative); Hyaline Casts,Urine 8 /lpf (0-2); Ketones,Urine Negative (Negative); Leukocyte Esterase,Urine Large (Negative); Mucus,Urine Rare /hpf; Nitrite,Urine Positive (Negative); Protein,Urine Trace (Negative); RBC,Urine 1 /hpf (0-5); Specific Gravity,Urine 1.015 (1.001-1.035); Squamous Epithelial Cell,Urine 2 /hpf (0-4); Urobilinogen,Urine <2.0 mg/dL (<2.0); WBC,Urine 37 /hpf (0-5)
[2019-03-30 17:51] LABS: Basophils # (A) 0.1 k/uL (0-0.2); Basophils % (A) 1 %; Eosinophils # (A) 0.2 k/uL (0-0.7); Eosinophils % (A) 3 %; HGB 10.8 gm/dL (11.4-16.0); Hypochromasia Slight; Lymphocytes # (A) 1.7 k/uL (1.0-4.8); Lymphocytes % (A) 33 %; MCH 34.9 pg (25.0-35.0); MCHC 31.8 g/dL (31.0-37.0); MCV 109.6 fL (80.0-100.0); Macrocytosis Marked; Mean Platelet Volume 7.7; Monocytes # (A) 0.3 k/uL (0-1.0); Monocytes % (A) 6 %; Neutrophils # (A) 2.8 k/uL (1.3-7.7); Neutrophils % (A) 55 %; Platelet Count 130 k/uL (150-450); RDW 13.7 % (11.5-15.5); WBC 5.1 k/uL (3.8-10.6)
[2019-03-31 02:15] LABS: African American GFR (CKD) 47.1 (60.0-200.0); Albumin 4.2 g/dL (3.80-4.90); Anion Gap 14.4 mmol/L (4.00-12.00); BUN/Creat Ratio 27.5 Ratio (12.00-20.00); Carbon Dioxide 18.6 mmol/L (21.6-31.8); Magnesium 1.9 mg/dL (1.5-2.4); Non-African American GFR(CKD) 40.6 (60.0-200.0); Phosphorus 3.6 mg/dL (2.4-5.1); Potassium 4.3 mmol/L (3.5-5.5); Uric Acid 6.3 mg/dL (2.9-7.7)
[2019-03-31 02:42] LABS: Ferritin 682.1 ng/mL (10.0-291.0); Iron Saturation 35.45 (12.00-45.00)
[2019-03-31 04:57] LABS: Creatinine,Urine Random 80.6 mg/dL
[2019-03-31 05:00] LABS: Total Protein,Urine Random 36.9 mg/dL (0.0-13.5)
== END | disposition home or self-care (01) ==
LOC: LABWHC1 16:39
PROVIDERS: ATTEND Internal Medicine Nephrology
DX: E55.9 Vitamin D deficiency, unspecified (principal); M10.9 Gout, unspecified; N39.0 Urinary tract infection, site not specified; D64.9 Anemia, unspecified; N25.81 Secondary hyperparathyroidism of renal origin
CPT/HCPCS: 36415; 80048; 81001; 82040; 82570; 82728; 83540; 83550; 83735; 83970; 84100; 84156; 84550; 85025

== ENCOUNTER → 2019-04-28 | Outpatient (CLI) | payer MEDICARE, BC ==
[2019-04-28 13:46] VITALS: BP 134/61; PULSE 77; RESP 18; TEMP 97.5; BMI 28.9
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
== END | disposition home or self-care (01) ==
LOC: WWCWWP 13:28
PROVIDERS: ATTEND Obstetrics & Gynecology
DX: Z53.9 Procedure and treatment not carried out, unspecified reason (principal)

== ENCOUNTER → 2019-05-27 | Outpatient (CLI) | payer MEDICARE, BC ==
[2019-05-27 12:04] VITALS: BP 157/78; PULSE 73; RESP 16; TEMP 97.9; BMI 28.9
--- NOTE | 2019-05-27 13:31 | P.PCN ---
Date of Procedure: 05/27/19 Preoperative Diagnosis: Vulvar/perineal lesion of uncertain behavior Postoperative Diagnosis: Same Procedure(s) Performed: Vulvar/perineal leion biopsy Anesthesia: local Surgeon: Jad Alvarez Estimated Blood Loss (ml): 2 Pathology: other (Vulvar/perineal biopsy) Condition: stable Disposition: same day Indications for Procedure: This was an 88-year-old menopausal female with an LMP of 1968. The patient noticed a sore area at the posterior aspect of the right vulva. The patient is found to have a 1 x 1 cm slightly raised lesion at the border of the posterior right labia majora and perineum. The decision was made to biopsy this lesion. Operative Findings: There is a 1 x 1 cm round slightly raised pinkish lesion which has very regular borders. This is not ulcerated and nontender. The lesion is at the border of the right labia majora and perineum. Description of Procedure: The procedure was explained to the patient. We also discussed possible risks including bleeding and infection. The patient was placed in the lithotomy position and the lesion was prepped with Betadine solution. Lidocaine was used for local anesthesia and 1 mL was injected. Following determination of adequate anesthesia a 3 mm punch biopsy was used to obtain tissue from the central part of the lesion. The base was cut with scissors and the specimen was sent for pathological examination. Silver nitrate sticks were used obtain hemostasis. Antibiotic ointment was applied and a dressing was applied. The patient tolerated the procedure well. Postprocedure blood pressure was 156/82. The patient was instructed to leave the dressing on until tomorrow. After that she'll remove it and keep the area clean and dry. She was instructed to apply an antibiotic ointment such as Neosporin twice a day until healed. She was instructed to call if she has problems such as heavy bleeding, unusual pain or problems. The estimated blood loss was 2ml.
--- NOTE | 2019-05-28 10:50 | P.PN ---
Progress Note - Text Progress Note Date: 05/28/19 Post procedure follow up call Pt states she is doing well. Had minimal bleeding after procedure. Will await pathology results.
--- NOTE | 2019-06-02 09:45 | P.PN ---
Progress Note - Text Progress Note Date: 06/02/19 OUTPATIENT FOLLOW-UP NOTE TEST(S)/RESULTS: Vulvar biopsy done on 05/27/2019 showed MICHAEL II-III. METHOD OF NOTIFICATION: The patient was notified by phone. PATIENT COMMENTS: DIAGNOSIS: MICHAEL II-III (Vulvar dysplasia) DISCUSSION: We have discussed how this lesion is considered precancerous and I have recommended wide local excision. She understands that this can help rule out invasive cancer and may be curative. PLAN: The patient will be referred for wide local excision of the MICHAEL II-III. She will be referred to Dr. Bowman.
== END | disposition home or self-care (01) ==
LOC: WWCWWP 11:39
PROVIDERS: ATTEND Obstetrics & Gynecology
DX: N90.1 Moderate vulvar dysplasia (principal)
CPT/HCPCS: 88305

== ENCOUNTER → 2019-06-29 | Outpatient (CLI) | payer MEDICARE, BC ==
[2019-06-29 15:18] LABS: Basophils % (A) 1 %; Eosinophils # (A) 0.1 k/uL (0-0.7); Eosinophils % (A) 2 %; HCT 37.1 % (34.0-46.0); HGB 11.8 gm/dL (11.4-16.0); Lymphocytes # (A) 1.5 k/uL (1.0-4.8); Lymphocytes % (A) 30 %; MCH 33.7 pg (25.0-35.0); MCHC 31.7 g/dL (31.0-37.0); MCV 106.4 fL (80.0-100.0); Macrocytosis Moderate; Mean Platelet Volume 7.3; Monocytes # (A) 0.3 k/uL (0-1.0); Monocytes % (A) 6 %; Neutrophils # (A) 2.9 k/uL (1.3-7.7); Neutrophils % (A) 59 %; Platelet Count 123 k/uL (150-450); RBC 3.49 m/uL (3.80-5.40); RDW 13.5 % (11.5-15.5); WBC 4.9 k/uL (3.8-10.6)
== END | disposition home or self-care (01) ==
LOC: LABPAT 14:22
PROVIDERS: ATTEND Obstetrics & Gynecology
DX: Z01.818 Encounter for other preprocedural examination (principal); Z01.812 Encounter for preprocedural laboratory examination; I10 Essential (primary) hypertension
CPT/HCPCS: 36415; 85025; 93005

== ENCOUNTER → 2019-07-02 | Outpatient (CLI) | payer MEDICARE, BC ==
[2019-07-02 20:17] LABS: African American GFR (CKD) 42.7 (60.0-200.0); Albumin 4.2 g/dL (3.80-4.90); Albumin/Globulin Ratio 1.62 (1.60-3.17); Anion Gap 10.5 mmol/L (4.00-12.00); BUN/Creat Ratio 19.23 Ratio (12.00-20.00); Carbon Dioxide 22.5 mmol/L (21.6-31.8); Globulin 2.6 g/dL (1.6-3.3); Potassium 4.7 mmol/L (3.5-5.5); Total Bilirubin 0.5 mg/dL (0.2-1.2); Total Protein 6.8 g/dL (6.2-8.2)
== END | disposition home or self-care (01) ==
LOC: LABWHC1 12:02
PROVIDERS: ATTEND Nurse Practitioner Family
DX: Z01.812 Encounter for preprocedural laboratory examination (principal); I12.9 Hypertensive chronic kidney disease with stage 1 through stage 4 chronic kidney disease, or unspecified chronic kidney disease; N18.3 Chronic kidney disease, stage 3 (moderate)
CPT/HCPCS: 36415; 80053

== ENCOUNTER 2019-07-07 06:15 | Day surgery (SDC) | payer MEDICARE, BC ==
[2019-07-03 15:15] VITALS: BMI 27.3
[~2019-07-07 06:15] MED LIST changes: +LACTATED RINGERS 1,000 ML IV SCH; +Pre Op ABX Message 1 EACH MISC MISCELLANE ONE; -SODIUM CHLORIDE 0.9% 1,000 ML IV SCH
[2019-07-07 06:43] VITALS: TEMP 97.3
[2019-07-07] MEDS ORDERED: LIDOCAINE 1% 20 ML VIAL (10MG/ML) FOR IV START INTRADERMA ONE (06:53)
[2019-07-07] MEDS ORDERED: DEXAMETHASONE SOD PHOSPHATE 10 MG/ML 1 ML VIAL IV ONE (07:16)
[2019-07-07] MEDS ORDERED: ONDANSETRON 4 MG/2 ML VIAL IVP ONE (07:16)
[2019-07-07] MEDS ORDERED: MIDAZOLAM 2 MG/2 ML VIAL ONE (07:30)
[2019-07-07] MEDS ORDERED: PROPOFOL 10 MG/ML 20 ML VIAL IV ONE (07:30)
[2019-07-07] MEDS ORDERED: fentaNYL (PF) 50 MCG/ML 2 ML AMP ONE (07:30)
[2019-07-07] MEDS ORDERED: LIDOCAINE 1%-EPI 1:100,000 20 ML VIAL SQ ONE (07:45)
--- NOTE | 2019-07-07 08:06 | P.OP ---
Date of Procedure: 07/07/19 Preoperative Diagnosis: MICHAEL-3 right vulva Postoperative Diagnosis: Pathology pending Procedure(s) Performed: Wide local excision right vulvar lesion Anesthesia: NIKA, local Surgeon: Malaika Bowman Estimated Blood Loss (ml): 10 IV fluids (ml): 500 Urine output (ml): 150 Pathology: other (Right vulvar lesion elliptical excision) Condition: stable Disposition: PACU Description of Procedure: Patient is brought to the operating suite and placed in the dorsal lithotomy position. Light IV sedation is administered per anesthesia. The appropriate timeout is performed to assure proper patient and procedural identification after prepping and draping of the lower body is performed. The right upper thigh has been marked with a marking pen. Antibiotics are not deemed necessary. Sequential stockings are placed. Inspection of the vulvar reveals identification of the previously biopsied area on the right. This region is injected with 1% lidocaine with epinephrine. The bladder is drained for approximately 150 mL of urine. A scalpel is used and a elliptical incision is made to completely excise the area. 2-0 Vicryl is used in an interrupted fashion to bring the edges together. 3-0 repeat dissolvable suture is then used in a subcutaneous manner to bring the edges together. A third layer is placed for excellent reapproximation of the edges. The third layer is in an interrupted fashion. The area is clean and dry, hemostasis is excellent. Neosporin is placed on the wound and a mónica-pad is placed. Estimated blood loss 10 mL's. All sponge needle and enhancement counts are correct. Patient is brought back to recovery room in very good condition with stable vital signs including blood pressure 129/54, pulse 70, 99% O2 saturation. Patient will follow-up with me in the office in 2 weeks. Local wound care is reviewed in detail as the patient is awake and alert upon leaving the OR.
[2019-07-07 08:52] VITALS: RESP 20
[2019-07-07 09:44] VITALS: BP 133/70; PULSE 72
--- NOTE | 2019-07-09 09:07 | CDI ---
Outpatient Documentation Clarification Form Date; 07/09/19 CDS/Office Machinery Or Equipment Installer Name: Karissa Leal Phone: If any questions, call [facility] [employer] Fe[employer] at [phone] Patient Name: Daija Lainez Admit Date: 07/07/19 Discharge Date; 07/07/19 ATTENTIONl: The [facility] Coding Staff appreciate your assistance in clarifying documentation. Please respond to the clarification below the line at the bottom and electronically sign. The [facility] Coding Staff will review the response and follow-up if needed. Please Note: Queries are made part of the Legal Health Record. If you have any questions, please contact the [employer] Feeder. Dear Dr. Bowman, In order to comply with the National Coding Guidelines to code to the closest specificity, please clarify the size of the lesion excised. Thank you for your kind consideration. size of lesion 1cm MTDD
== END 2019-07-07 09:43 | disposition home or self-care (01) ==
LOC: OR 06:15
PROVIDERS: ATTEND Obstetrics & Gynecology
DX: D07.1 Carcinoma in situ of vulva (principal); D64.9 Anemia, unspecified; R01.1 Cardiac murmur, unspecified; I12.9 Hypertensive chronic kidney disease with stage 1 through stage 4 chronic kidney disease, or unspecified chronic kidney disease; N18.9 Chronic kidney disease, unspecified; H35.30 Unspecified macular degeneration; H40.9 Unspecified glaucoma; I08.0 Rheumatic disorders of both mitral and aortic valves; M19.90 Unspecified osteoarthritis, unspecified site; Z87.11 Personal history of peptic ulcer disease; Z90.710 Acquired absence of both cervix and uterus; Z90.01 Acquired absence of eye; Z80.9 Family history of malignant neoplasm, unspecified; Z83.6 Family history of other diseases of the respiratory system; Z97.2 Presence of dental prosthetic device (complete) (partial); Z87.891 Personal history of nicotine dependence; Z79.899 Other long term (current) drug therapy
CPT/HCPCS: 11621; 88305; J2250; J1100; J2405; J3010; J2704

== ENCOUNTER → 2020-02-22 | Outpatient (CLI) | payer MEDICARE, BC ==
[2020-02-22 15:14] LABS: Appearance,Urine Cloudy (Clear); Bacteria,Urine Moderate /hpf; Basophils % (A) 1 %; Bilirubin,Urine Negative (Negative); Blood,Urine Negative (Negative); Color,Urine Yellow; Eosinophils # (A) 0.1 k/uL (0-0.7); Eosinophils % (A) 3 %; Glucose,Urine (UA) Negative (Negative); HCT 33.3 % (34.0-46.0); HGB 10.5 gm/dL (11.4-16.0); Hyaline Casts,Urine 1 /lpf (0-2); Hypochromasia Moderate; Ketones,Urine Negative (Negative); Leukocyte Esterase,Urine Large (Negative); Lymphocytes % (A) 25 %; MCH 35.5 pg (25.0-35.0); MCHC 31.6 g/dL (31.0-37.0); MCV 112.5 fL (80.0-100.0); Macrocytosis Marked; Mean Platelet Volume 9.6; Monocytes # (A) 0.2 k/uL (0-1.0); Monocytes % (A) 6 %; Mucus,Urine Rare /hpf; Neutrophils # (A) 2.5 k/uL (1.3-7.7); Neutrophils % (A) 62 %; Nitrite,Urine Negative (Negative); PH, Urine 5.5 (5.0-8.0); Platelet Count 110 k/uL (150-450); Protein,Urine 1+ (Negative); RBC 2.96 m/uL (3.80-5.40); RBC,Urine 5 /hpf (0-5); RDW 13.8 % (11.5-15.5); Specific Gravity,Urine 1.018 (1.001-1.035); Squamous Epithelial Cell,Urine 1 /hpf (0-4); Urobilinogen,Urine <2.0 mg/dL (<2.0); WBC 4.1 k/uL (3.8-10.6); WBC,Urine 66 /hpf (0-5)
[2020-02-22 15:17] LABS: Protein/Creatinine Ratio,Urine 0.271
[2020-02-22 23:22] LABS: % Iron Saturation 26.43 (12.00-45.00); African American GFR (CKD) 46.7 (60.0-200.0); Anion Gap 5.8 mmol/L (4.00-12.00); BUN/Creat Ratio 29.17 Ratio (12.00-20.00); Calcium 9.2 mg/dL (8.7-10.3); Carbon Dioxide 26.2 mmol/L (21.6-31.8); Magnesium 1.8 mg/dL (1.5-2.4); Non-African American GFR(CKD) 40.3 (60.0-200.0); Phosphorus 3.2 mg/dL (2.4-5.1); Potassium 4.5 mmol/L (3.5-5.5)
[2020-02-22 23:33] LABS: Ferritin 328.6 ng/mL (10.0-291.0)
== END | disposition home or self-care (01) ==
LOC: LABWHC1 14:04
PROVIDERS: ATTEND Nurse Practitioner Family
DX: N18.3 Chronic kidney disease, stage 3 (moderate) (principal); D63.1 Anemia in chronic kidney disease; N39.0 Urinary tract infection, site not specified; R80.9 Proteinuria, unspecified; N25.81 Secondary hyperparathyroidism of renal origin
CPT/HCPCS: 36415; 80048; 81001; 82306; 82570; 82728; 83540; 83550; 83735; 83970; 84100; 84156; 85025

== ENCOUNTER → 2020-08-24 | Outpatient (CLI) | payer MEDICARE, BC ==
[2020-08-24 14:36] LABS: Basophils % (A) 1 %; Eosinophils # (A) 0.1 k/uL (0-0.7); Eosinophils % (A) 3 %; HCT 35.4 % (34.0-46.0); HGB 11.7 gm/dL (11.4-16.0); Hypochromasia Slight; Lymphocytes # (A) 1.3 k/uL (1.0-4.8); Lymphocytes % (A) 26 %; MCH 36.5 pg (25.0-35.0); MCHC 33.2 g/dL (31.0-37.0); Macrocytosis Marked; Mean Platelet Volume 7.9; Monocytes # (A) 0.3 k/uL (0-1.0); Monocytes % (A) 5 %; Neutrophils # (A) 3.1 k/uL (1.3-7.7); Neutrophils % (A) 64 %; Platelet Count 117 k/uL (150-450); RBC 3.22 m/uL (3.80-5.40); RDW 13.6 % (11.5-15.5); WBC 4.9 k/uL (3.8-10.6)
[2020-08-24 15:42] LABS: Appearance,Urine Cloudy (Clear); Bacteria,Urine Few /hpf; Bilirubin,Urine Negative (Negative); Blood,Urine Negative (Negative); Color,Urine Yellow; Glucose,Urine (UA) Negative (Negative); Ketones,Urine Negative (Negative); Leukocyte Esterase,Urine Large (Negative); Mucus,Urine Occasional /hpf; Nitrite,Urine Negative (Negative); PH, Urine 5.5 (5.0-8.0); Protein,Urine Trace (Negative); Specific Gravity,Urine 1.021 (1.001-1.035); Squamous Epithelial Cell,Urine <1 /hpf (0-4); Urobilinogen,Urine <2.0 mg/dL (<2.0); WBC,Urine 22 /hpf (0-5)
[2020-08-25 01:15] LABS: % Iron Saturation 41.09 (12.00-45.00); African American GFR (CKD) 38.8 (60.0-200.0); Albumin 4.2 g/dL (3.80-4.90); Anion Gap 8.2 mmol/L (4.00-12.00); BUN/Creat Ratio 29.29 Ratio (12.00-20.00); Calcium 9.1 mg/dL (8.7-10.3); Carbon Dioxide 23.8 mmol/L (21.6-31.8); Magnesium 1.9 mg/dL (1.5-2.4); Non-African American GFR(CKD) 33.5 (60.0-200.0); Phosphorus 3.6 mg/dL (2.4-5.1); Potassium 4.9 mmol/L (3.5-5.5); Uric Acid 6.3 mg/dL (2.9-7.7)
[2020-08-25 01:18] LABS: Creatinine,Urine Random 140.5 mg/dL
[2020-08-25 01:23] LABS: Ferritin 236.2 ng/mL (10.0-291.0)
[2020-08-25 01:24] LABS: Total Protein,Urine Random 32.4 mg/dL (0.0-13.5)
== END | disposition home or self-care (01) ==
LOC: LABWHC1 13:58
PROVIDERS: ATTEND Internal Medicine Nephrology
DX: N25.81 Secondary hyperparathyroidism of renal origin (principal); R82.81 Pyuria; N18.30 Chronic kidney disease, stage 3 unspecified; M10.9 Gout, unspecified; D63.1 Anemia in chronic kidney disease
CPT/HCPCS: 36415; 80048; 81001; 82040; 82306; 82570; 82728; 83540; 83550; 83735; 83970; 84100; 84156; 84550; 85025; 87086

== ENCOUNTER → 2021-02-10 | Outpatient (CLI) | payer MEDICARE, BC ==
[2021-02-10 14:36] LABS: Appearance,Urine Clear (Clear); Bacteria,Urine Many /hpf; Bilirubin,Urine Negative (Negative); Blood,Urine Negative (Negative); Color,Urine Light Yellow; Glucose,Urine (UA) Negative (Negative); Ketones,Urine Negative (Negative); Leukocyte Esterase,Urine Large (Negative); Mucus,Urine Rare /hpf; Nitrite,Urine Negative (Negative); Protein,Urine Negative (Negative); RBC,Urine <1 /hpf (0-5); Specific Gravity,Urine 1.006 (1.001-1.035); Squamous Epithelial Cell,Urine <1 /hpf (0-4); Urobilinogen,Urine <2.0 mg/dL (<2.0); WBC,Urine 38 /hpf (0-5)
[2021-02-10 14:38] LABS: Creatinine,Urine Random 22.4 mg/dL; Protein/Creatinine Ratio,Urine 0.759
[2021-02-10 19:24] LABS: Basophils # (A) 0.02 X 10*3/uL (0.00-0.10); Basophils % (A) 0.4 %; Eosinophils # (A) 0.15 X 10*3/uL (0.04-0.35); Eosinophils % (A) 2.8 %; HCT 34.9 % (37.2-46.3); HGB 10.7 g/dL (12.0-15.0); Lymphocytes # (A) 1.08 X 10*3/uL (0.90-5.00); Lymphocytes % (A) 19.9 %; MCH 34.9 pg (27.0-32.0); MCHC 30.7 g/dL (32.0-37.0); MCV 113.7 fL (80.0-97.0); Mean Platelet Volume 11.4 fL (9.5-12.2); Monocytes # (A) 0.34 X 10*3/uL (0.20-1.00); Monocytes % (A) 6.3 %; Platelet Count 91 X 10*3/uL (140-440); RBC 3.07 X 10*6/uL (4.10-5.20); RDW 14.5 % (11.5-14.5); WBC 5.42 X 10*3/uL (4.50-10.00)
[2021-02-10 19:25] LABS: Macrocytosis (M) 3+
[2021-02-10 20:05] LABS: % Iron Saturation 26.69 (12.00-45.00); Albumin 4.2 g/dL (3.80-4.90); Anion Gap 9.2 mmol/L (4.00-12.00); Calcium 8.8 mg/dL (8.7-10.3); Carbon Dioxide 19.8 mmol/L (21.6-31.8); Magnesium 2.4 mg/dL (1.5-2.4); Non-African American GFR(CKD) 21.6 (60.0-200.0); Phosphorus 4.5 mg/dL (2.4-5.1); Uric Acid 7.9 mg/dL (2.9-7.7)
[2021-02-10 20:15] LABS: Ferritin 321.6 ng/mL (10.0-291.0)
== END | disposition home or self-care (01) ==
LOC: LABWHC1 13:34
PROVIDERS: ATTEND Internal Medicine Cardiovascular Disease
DX: N39.0 Urinary tract infection, site not specified (principal); N18.30 Chronic kidney disease, stage 3 unspecified; N25.81 Secondary hyperparathyroidism of renal origin; E55.9 Vitamin D deficiency, unspecified; D64.9 Anemia, unspecified; M10.9 Gout, unspecified; R80.9 Proteinuria, unspecified; R00.1 Bradycardia, unspecified
CPT/HCPCS: 36415; 80048; 81001; 82040; 82306; 82570; 82728; 83540; 83550; 83735; 83970; 84100; 84156; 84443; 84550; 85025

== ENCOUNTER → 2021-03-22 | Outpatient (CLI) | payer MEDICARE, BC ==
[2021-03-23 01:12] LABS: African American GFR (CKD) 42.1 (60.0-200.0); Anion Gap 10.6 mmol/L (4.00-12.00); BUN/Creat Ratio 32.31 Ratio (12.00-20.00); Calcium 8.8 mg/dL (8.7-10.3); Carbon Dioxide 22.4 mmol/L (21.6-31.8); Non-African American GFR(CKD) 36.3 (60.0-200.0); Potassium 5.4 mmol/L (3.5-5.5)
== END | disposition home or self-care (01) ==
LOC: LABWHC1 11:58
PROVIDERS: ATTEND Nurse Practitioner Family
DX: N18.30 Chronic kidney disease, stage 3 unspecified (principal)
CPT/HCPCS: 36415; 80048

== ENCOUNTER 2021-05-05 15:26 | Observation (INO) | payer MEDICARE, BC ==
[2021-05-05] MEDS ORDERED: SODIUM CHLORIDE 0.9% 1,000 ML IV STA (16:29)
[2021-05-05] MEDS ORDERED: SODIUM CHLORIDE 0.9% 500 ML 500 ML IV STA (16:29)
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
[2021-05-05 17:01] LABS: Basophils % (A) 1 %; Eosinophils # (A) 0.1 k/uL (0-0.7); Eosinophils % (A) 1 %; HCT 34.3 % (34.0-46.0); HGB 10.9 gm/dL (11.4-16.0); Lymphocytes # (A) 1.7 k/uL (1.0-4.8); Lymphocytes % (A) 29 %; MCH 35.1 pg (25.0-35.0); MCHC 31.8 g/dL (31.0-37.0); MCV 110.3 fL (80.0-100.0); Macrocytosis Marked; Mean Platelet Volume 9.2; Monocytes # (A) 0.4 k/uL (0-1.0); Monocytes % (A) 6 %; Neutrophils # (A) 3.5 k/uL (1.3-7.7); Neutrophils % (A) 60 %; Platelet Count 106 k/uL (150-450); RBC 3.11 m/uL (3.80-5.40); RDW 14.1 % (11.5-15.5); WBC 5.8 k/uL (3.8-10.6)
[2021-05-05 17:03] LABS: Appearance,Urine Cloudy (Clear); Bacteria,Urine Moderate /hpf; Bilirubin,Urine Negative (Negative); Blood,Urine Negative (Negative); Color,Urine Yellow; Glucose,Urine (UA) Negative (Negative); Hyaline Casts,Urine 36 /lpf (0-2); Ketones,Urine Negative (Negative); Leukocyte Esterase,Urine Large (Negative); Mucus,Urine Rare /hpf; Nitrite,Urine Negative (Negative); Protein,Urine Trace (Negative); RBC,Urine 1 /hpf (0-5); Specific Gravity,Urine 1.025 (1.001-1.035); Squamous Epithelial Cell,Urine 2 /hpf (0-4); WBC,Urine 4 /hpf (0-5)
[2021-05-05 17:12] LABS: Albumin 4.1 g/dL (3.5-5.0); Calcium 9.2 mg/dL (8.4-10.2); Magnesium 2.7 mg/dL (1.6-2.3); Potassium 5.8 mmol/L (3.5-5.1); Total Bilirubin 0.4 mg/dL (0.2-1.3); Total Protein 7.2 g/dL (6.3-8.2)
[2021-05-05] MEDS ORDERED: NALOXONE 0.4 MG/ML 1 ML VIAL IV PRN (19:04)
[2021-05-05] MEDS ORDERED: FUROSEMIDE 20 MG TAB PO PRN (19:05)
--- NOTE | 2021-05-05 19:32 | XR ---
EXAMINATION TYPE: XR chest 2V DATE OF EXAM: 05/05/2021 COMPARISON: 01/24/2018 HISTORY: 2 views TECHNIQUE: 2 views FINDINGS: There is no heart failure nor confluent pneumonic infiltrate. Costophrenic angles are clear . There is left shoulder prosthesis. There are chest leads. Thoracic aorta is atheromatous. Bony thor ax is intact. IMPRESSION: No active cardiopulmonary disease. There is clearing of the minimal infiltrate left lung base compared to old exam.
[2021-05-05] MEDS ORDERED: LATANOPROST 0.005% OPHTH DROPS 2.5 ML BTL RIGHT EYE SCH (21:00)
[2021-05-05] MEDS: MECLIZINE 25 MG TAB PO SCH (21:04)
[2021-05-05] MEDS: VIT A,C & E-LUTEIN-MINERALS 1 EACH TAB PO SCH (23:00)
[2021-05-06] MEDS ORDERED: ALPRAZolam 0.25 MG TAB PO STA (03:13)
[2021-05-06] MEDS: MECLIZINE 25 MG TAB PO SCH (08:38)
[2021-05-06 08:41] VITALS: TEMP 97.9
[2021-05-06] MEDS: VIT A,C & E-LUTEIN-MINERALS 1 EACH TAB PO SCH (08:44)
[2021-05-06] MEDS ORDERED: CYANOCOBALAMIN 500 MCG TAB PO SCH (09:00)
[2021-05-06] MEDS ORDERED: NON FORMULARY DRUG (Magnesium Chloride 64 MG Tablet.Er) PO SCH (09:00)
[2021-05-06] MEDS ORDERED: NON FORMULARY DRUG (Krill Oil [Krill Oil] 500 MG Capsule) PO SCH (09:00)
[2021-05-06] MEDS ORDERED: ZINC SULFATE 220 MG CAP PO SCH (09:00)
[2021-05-06] MEDS ORDERED: amLODIPine 5 MG TAB PO SCH (09:00)
[2021-05-06] MEDS ORDERED: SODIUM CHLORIDE 0.9% 1,000 ML IV SCH (09:45)
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
[2021-05-06 12:14] LABS: Basophils % (A) 0 %; Eosinophils # (A) 0.1 k/uL (0-0.7); Eosinophils % (A) 1 %; HCT 32.1 % (34.0-46.0); HGB 10.3 gm/dL (11.4-16.0); Lymphocytes # (A) 1.6 k/uL (1.0-4.8); Lymphocytes % (A) 23 %; MCH 35.4 pg (25.0-35.0); MCV 110.3 fL (80.0-100.0); Macrocytosis Marked; Mean Platelet Volume 9.4; Monocytes # (A) 0.3 k/uL (0-1.0); Monocytes % (A) 5 %; Neutrophils # (A) 4.7 k/uL (1.3-7.7); Neutrophils % (A) 68 %; Platelet Count 109 k/uL (150-450); RBC 2.91 m/uL (3.80-5.40); RDW 14.8 % (11.5-15.5); WBC 6.9 k/uL (3.8-10.6)
[2021-05-06 12:21] LABS: African American GFR (CKD) 28 (>60 ml/min/1.73 sqM); Anion Gap 8 mmol/L; Blood Urea Nitrogen 59 mg/dL (7-17); Carbon Dioxide 19 mmol/L (22-30); Chloride 108 mmol/L (98-107); Glucose 137 mg/dL (74-99); Magnesium 2.5 mg/dL (1.6-2.3); Non-African American GFR(CKD) 24 (>60 ml/min/1.73 sqM); Potassium 5.6 mmol/L (3.5-5.1); Sodium 135 mmol/L (137-145)
[2021-05-06 14:34] VITALS: BP 115/65; PULSE 74; RESP 18
--- NOTE | 2021-05-07 13:12 | P.DS ---
Providers Date of admission: 05/05/21 19:04 Expected date of discharge: 05/06/21 Attending physician: Blake Epperson Consults: 05/05/21 19:04 Consult Physician Routine Consulting Provider: Ashish Gonzalez Consult Reason/Comments: Palpitations, EKG changes Do you want consulting provider notified?: Yes Primary care physician: Blake Epperson - Discharge Diagnosis(es) (1) Hyperkalemia Status: Acute (2) Hypermagnesemia Status: Acute (3) Acute on chronic kidney failure Status: Acute (4) Mixed hyperlipidemia Status: Acute (5) Essential (primary) hypertension Status: Acute (6) Low back pain Status: Acute (7) Acute electrocardiogram changes Status: Acute (8) Dehydration Status: Acute (9) Dizziness Status: Acute Hospital Course: This is an 89-year-old female well-known to me with several chronic medical problems including vertigo, hypertension. She reports a several day history of feeling dizzy lightheaded. She denied any fevers, nausea vomiting, chest pains, receiving shortness of breath. She denies any focal weakness. She came emergency room was found to have a junctional heart rhythm along with hyperkalemia. She also has hypomagnesemia and there are suspicions some deh ydration based on a BUN is 66 and creatinine of 2.0. She received some IV fluids in the emergency room. Currently she denies any chest pains, pressures, shortness breath. Denies any nausea vomiting, she still feels a little lightheaded but is improved. Cardiology consultation is pending. Her telemetry has not been reattached. addendum to 05/06/2021: patient left AMA in the evening after getting inpatient waiting on cardiology. Patient Condition at Discharge: Fair Plan - Discharge Summary Discharge Rx Participant: No New Discharge Prescriptions: Continue Meclizine [Antivert] 25 mg PO BID Vit C/E/Zn/Coppr/Lutein/Zeaxan [Preservision Areds 2 Softgel] 1 cap PO BID Latanoprost/Pf [Latanoprost 0.005% Eye Drop] 1 drop RIGHT EYE HS Discharge Medication List Meclizine [Antivert] 25 mg PO BID 12/04/17 [History] Vit C/E/Zn/Coppr/Lutein/Zeaxan [Preservision Areds 2 Softgel] 1 cap PO BID 12/04/17 [History] Latanoprost/Pf [Latanoprost 0.005% Eye Drop] 1 drop RIGHT EYE HS 10/29/18 [History] Follow up Appointment(s)/Referral(s): Blake Epperson MD [Primary Care Provider] - 1-2 days Discharge Disposition: Left Against Medical Advice
== END 2021-05-06 16:05 | disposition left against medical advice (07) ==
LOC: EC 15:26 → 6NMEDSUR 19:04
PROVIDERS: ADMIT Family Medicine; ATTEND Family Medicine
DX: E87.5 Hyperkalemia (principal); E83.41 Hypermagnesemia; N17.9 Acute kidney failure, unspecified; Z20.822 Contact with and (suspected) exposure to COVID-19; N18.9 Chronic kidney disease, unspecified; I12.9 Hypertensive chronic kidney disease with stage 1 through stage 4 chronic kidney disease, or unspecified chronic kidney disease; E78.2 Mixed hyperlipidemia; E83.42 Hypomagnesemia; M85.80 Other specified disorders of bone density and structure, unspecified site; Z87.891 Personal history of nicotine dependence
CPT/HCPCS: 96360; 96361; 99285; 36415; 93005; 85379; 80053; 80048; 82550; 83690; 83735 ×2; 84484; 85025 ×2; 81001; 87635; 71046; G0378 ×2

== ENCOUNTER 2021-05-14 12:00 | Emergency (ER) | payer MEDICARE, BC ==
[2021-05-14 12:27] VITALS: BP 128/82; PULSE 76; RESP 18; TEMP 98.7
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
--- NOTE | 2021-05-14 13:36 | XR ---
Abdomen, single view. HISTORY: Abdominal pain COMPARISON: 11/23/2015. TECHNIQUE: Single upright AP view the abdomen was obtained. Lung bases are clear and there is no free air beneath the hemidiaphragms. The bowel gas pattern is nonspecific and there is no evidence of obstruction. There are extensive pos tsurgical changes involving the lumbar spine. No suspicious abdominal or pelvic calcifications are se en. IMPRESSION: Nonspecific abdomen without evidence of free air or obstruction.
[2021-05-14 14:28] LABS: Appearance,Urine Cloudy (Clear); Bacteria,Urine Many /hpf; Bilirubin,Urine Negative (Negative); Blood,Urine Negative (Negative); Budding Yeast,Urine Occasional /hpf; Color,Urine Yellow; Glucose,Urine (UA) Negative (Negative); Hyaline Casts,Urine 9 /lpf (0-2); Ketones,Urine Negative (Negative); Leukocyte Esterase,Urine Large (Negative); Mucus,Urine Rare /hpf; Nitrite,Urine Negative (Negative); Protein,Urine 1+ (Negative); RBC,Urine 3 /hpf (0-5); Specific Gravity,Urine 1.017 (1.001-1.035); Squamous Epithelial Cell,Urine 1 /hpf (0-4); Urobilinogen,Urine <2.0 mg/dL (<2.0); WBC,Urine 89 /hpf (0-5)
[2021-05-14] MEDS ORDERED: CEPHALEXIN 500 MG CAP PO STA (15:51)
== END 2021-05-14 16:05 | disposition home or self-care (01) ==
LOC: EC 12:00
DX: N39.0 Urinary tract infection, site not specified (principal); E78.5 Hyperlipidemia, unspecified; M19.90 Unspecified osteoarthritis, unspecified site; N18.9 Chronic kidney disease, unspecified; Z87.891 Personal history of nicotine dependence; Z90.49 Acquired absence of other specified parts of digestive tract; Z90.710 Acquired absence of both cervix and uterus; Z90.722 Acquired absence of ovaries, bilateral
CPT/HCPCS: 74018; 81001; 87086; 99283

== ENCOUNTER → 2021-08-29 | Outpatient (CLI) | payer MEDICARE, BC ==
[2021-08-29 15:44] LABS: Appearance,Urine Cloudy (Clear); Bacteria,Urine Many /hpf; Bilirubin,Urine Negative (Negative); Blood,Urine Negative (Negative); Color,Urine Yellow; Glucose,Urine (UA) Negative (Negative); Hyaline Casts,Urine 3 /lpf (0-2); Ketones,Urine Negative (Negative); Leukocyte Esterase,Urine Moderate (Negative); Mucus,Urine Rare /hpf; Nitrite,Urine Negative (Negative); PH, Urine 5.5 (5.0-8.0); Protein,Urine 1+ (Negative); RBC,Urine 1 /hpf (0-5); Specific Gravity,Urine 1.021 (1.001-1.035); Squamous Epithelial Cell,Urine 1 /hpf (0-4); WBC,Urine 18 /hpf (0-5)
[2021-08-29 22:37] LABS: HCT 34.5 % (37.2-46.3); HGB 10.5 g/dL (12.0-15.0); MCH 35.4 pg (27.0-32.0); MCHC 30.4 g/dL (32.0-37.0); MCV 116.2 fL (80.0-97.0); Mean Platelet Volume 11.5 fL (9.5-12.2); Platelet Count 91 X 10*3/uL (140-440); RBC 2.97 X 10*6/uL (4.10-5.20); RDW 13.4 % (11.5-14.5); WBC 4.95 X 10*3/uL (4.50-10.00)
[2021-08-29 22:38] LABS: Macrocytosis (M) 3+
[2021-08-29 23:34] LABS: African American GFR (CKD) 42.1 (60.0-200.0); Anion Gap 12.1 mmol/L (10.00-18.00); BUN/Creat Ratio 25.31 Ratio (12.00-20.00); Blood Urea Nitrogen 32.9 mg/dL (9.0-27.0); Calcium 9.5 mg/dL (8.7-10.3); Carbon Dioxide 22.5 mmol/L (20.0-27.5); Non-African American GFR(CKD) 36.3 (60.0-200.0); Potassium 4.4 mmol/L (3.5-5.5)
== END | disposition home or self-care (01) ==
LOC: LABWHC1 12:30
PROVIDERS: ATTEND Obstetrics & Gynecology
DX: Z20.822 Contact with and (suspected) exposure to COVID-19 (principal); Z01.812 Encounter for preprocedural laboratory examination
CPT/HCPCS: 80048; 85027; 81001; 87086; 36415; U0003; 87077; 87186

== ENCOUNTER → 2021-09-12 | Outpatient (CLI) | payer MEDICARE, BC ==
[2021-09-12 14:28] LABS: Appearance,Urine Cloudy (Clear); Bacteria,Urine Occasional /hpf; Bilirubin,Urine Negative (Negative); Blood,Urine Trace (Negative); Color,Urine Yellow; Glucose,Urine (UA) Negative (Negative); Hyaline Casts,Urine 9 /lpf (0-2); Ketones,Urine Negative (Negative); Leukocyte Esterase,Urine Large (Negative); Mucus,Urine Occasional /hpf; Nitrite,Urine Negative (Negative); Protein,Urine 1+ (Negative); RBC,Urine 21 /hpf (0-5); Specific Gravity,Urine 1.021 (1.001-1.035); Squamous Epithelial Cell,Urine 4 /hpf (0-4); Urobilinogen,Urine <2.0 mg/dL (<2.0); WBC,Urine 31 /hpf (0-5)
[2021-09-12 14:30] LABS: Creatinine,Urine Random 139.5 mg/dL; Protein/Creatinine Ratio,Urine 0.229
[2021-09-12 18:46] LABS: Albumin 4.2 g/dL (3.8-4.9)
[2021-09-12 18:48] LABS: Basophils # (A) 0.04 X 10*3/uL (0.00-0.10); Basophils % (A) 0.8 %; Eosinophils # (A) 0.04 X 10*3/uL (0.04-0.35); Eosinophils % (A) 0.8 %; HCT 33.1 % (37.2-46.3); HGB 10.1 g/dL (12.0-15.0); Lymphocytes % (A) 21.8 %; MCH 35.3 pg (27.0-32.0); MCHC 30.5 g/dL (32.0-37.0); MCV 115.7 fL (80.0-97.0); Macrocytosis (M) 3+; Mean Platelet Volume 11.2 fL (9.5-12.2); Monocytes # (A) 0.27 X 10*3/uL (0.20-1.00); Monocytes % (A) 5.4 %; Neutrophils # (A) 3.57 X 10*3/uL (1.80-7.70); Neutrophils % (A) 70.8 %; Platelet Count 86 X 10*3/uL (140-440); RBC 2.86 X 10*6/uL (4.10-5.20); RDW 13.5 % (11.5-14.5); WBC 5.04 X 10*3/uL (4.50-10.00)
[2021-09-12 19:34] LABS: % Iron Saturation 34.92 (12.00-45.00); Anion Gap 15.7 mmol/L (10.00-18.00); BUN/Creat Ratio 30.58 Ratio (12.00-20.00); Blood Urea Nitrogen 63.3 mg/dL (9.0-27.0); Calcium 9.1 mg/dL (8.7-10.3); Carbon Dioxide 13.9 mmol/L (20.0-27.5); Magnesium 2.1 mg/dL (1.5-2.4); Non-African American GFR(CKD) 20.7 (60.0-200.0); Phosphorus 4.2 mg/dL (2.4-5.1); Potassium 5.1 mmol/L (3.5-5.5); Uric Acid 7.5 mg/dL (2.9-7.7)
== END | disposition home or self-care (01) ==
LOC: LABWHC1 13:24
PROVIDERS: ATTEND Nurse Practitioner Family
DX: N25.81 Secondary hyperparathyroidism of renal origin (principal); N39.0 Urinary tract infection, site not specified; E55.9 Vitamin D deficiency, unspecified; R80.9 Proteinuria, unspecified; M10.9 Gout, unspecified; D64.9 Anemia, unspecified; N18.30 Chronic kidney disease, stage 3 unspecified
CPT/HCPCS: 36415; 80048; 81001; 82040; 82306; 82570; 82728; 83540; 83550; 83735; 83970; 84100; 84156; 84550; 85025; 87086